=== PATIENT | male | born 1945 | race Caucasian/White ===

== ENCOUNTER 2018-03-27 20:22 | Emergency (ER) | payer MEDICARE, OTHER, SELFPAY ==
[2018-03-27 20:27] VITALS: BP 152/72; PULSE 88; RESP 16; TEMP 36.7; O2SAT 98; BMI 29.9
[2018-03-27] MEDS: Morphine 4 MG/ML Syringe IV (21:30)
[2018-03-27] MEDS: Ondansetron 4 MG/2 ML Vial IV (21:31)
--- NOTE | 2018-03-27 21:35 | RAD_ITS ---
STUDY: X-RAY - RIGHT WRIST REASON FOR EXAM: Male, 72 years old. Injury TECHNIQUE: 3 view(s) of the wrist were obtained. COMPARISON: None. FINDINGS: There is impacted fracture at the distal radius with posterior displacement and angulation. There is positive ulnar variance with ulna carpal abutment. No osseous destruction. RAD/Wrist min 3 Views IMPRESSION: Fracture of the distal radius with posterior displacement and angulation Electronically Signed: Shantanu Benitez MD at 21:52 EDT Tel , Service support ,
[2018-03-27 23:44] VITALS: BP 134/82; PULSE 93; RESP 14; O2SAT 99
[2018-03-27 23:46] VITALS: BP 129/82; BP 137/89; BP 138/71; PULSE 79; PULSE 82; PULSE 84; RESP 17; RESP 20; O2SAT 96; O2SAT 97; O2SAT 98
--- NOTE | 2018-03-27 23:50 | RAD_ITS ---
STUDY: X-RAY - RIGHT WRIST REASON FOR EXAM: Male, 72 years old. Post reduction. TECHNIQUE: 2 view(s) of the wrist were obtained. COMPARISON: 03/27/2018. FINDINGS: There is redemonstration of a comminuted fracture of the radial metaphysis there is persistent impaction. Previously demonstrated posterior displacement and angulation is improved. Normal visualized distal ulna. Normal radiocarpal articulation. Normal distal radioulnar articulation. Normal carpal bones. Normal carpal articulations. Normal carpometacarpal articulation of the thumb. Normal second through fifth carpometacarpal articulations. Normal visualized metacarpal bones. RAD/Wrist 2 Views IMPRESSION: Impacted fracture of the radial metaphysis with improved angulation and posterior displacement when compared with previous study. Electronically Signed: Christiano Rosenberg MD at 0:43 EDT , Service support ,
[2018-03-28] VITALS: BP 139/106; PULSE 90; RESP 15; O2SAT 97
--- NOTE | 2018-03-28 00:05 | RAD_ITS ---
STUDY: X-RAY - RIGHT WRIST REASON FOR EXAM: Male, 72 years old. Right wrist fracture TECHNIQUE: 2 view(s) of the wrist were obtained. COMPARISON: 03/28/2018 at 0000 hours FINDINGS: There has been interval closed reduction of a comminuted distal radial metaphyseal fracture with fracture fragments held in near-anatomic alignment. Overlying plaster cast obscures fine bone detail. Normal radiocarpal articulation. Positive ulnar variance is noted. Normal carpal bones. Normal carpal articulations. There is mild nonuniform joint space narrowing with spur formation of the first carpometacarpal and triscaphe the joints. Normal second through fifth carpometacarpal articulations. Normal visualized metacarpal bones. Soft tissue swelling surrounding the wrist RAD/Wrist 2 Views IMPRESSION: Status post closed reduction and casting of a comminuted distal radial metaphyseal fracture Electronically Signed: Nilo Hollis MD at 1:13 EDT Tel , Service support ,
[2018-03-28 00:08] VITALS: BP 141/76; PULSE 83; RESP 17; O2SAT 98
[2018-03-28] MEDS: Propofol 200 MG/20 ML Vial IV BOLUS (00:09)
[2018-03-28 00:13] VITALS: BP 128/75; PULSE 83; RESP 14; O2SAT 97
--- NOTE | 2018-03-28 00:18 | ED.DCSUM_ITS ---
- ER Visit Summary Date of Service: 03/28/18 Chief Complaint: Right wrist injury History of Present Illness: The patient is a 72 M presenting with right wrist injury. Patient states he tripped and fell landing on outstretched right upper extremity. He did not hit his head or lose consciousness. He complains of right wrist pain. Denies other injuries. He has a history of previous right wrist fracture. Physical Examination: Vitals are stable. Patient is afebrile. Alert no acute distress. HEENT exam is unremarkable. Neck is nontender Lungs are clear and equal bilaterally. Heart is regular rate and rhythm. Extremities right wrist deformity, normal pulses Skin is warm and dry. No focal neurologic deficit. Remainder of exam is unremarkable. Emergency Department Course and Treatment: Patient was given morphine, Zofran IV. X-ray right wrist shows distal radius fracture with posterior displacement and angulation. Discussed with Dr. Ford. He recommends attempt at reduction with splinting and follow-up in the office. Hematoma block was performed. He was consented for procedural sedation. He is given propofol. Closed reduction was attempted and AP splint was applied. Neurovascularly intact after splint placement. Post reduction xray shows impacted fracture of the radial metaphysis with improved angulation and posterior displacement when compared with previous study, status post closed reduction and casting of a comminuted distal radial metaphyseal fracture. Patient is given a prescription for short course of [place]. He is advised to follow-up with Dr. Ford. Advised to return to the ED for worsening complaints. Disposition: Discharge home Impression: Right distal radius fracture, closed reduction, procedural sedation This note was generated with [employer] dictation software. It may contain incorrect words, spelling, and punctuation that were not noted in review of the chart prior to signing ED Disposition - Plan for ED Patient: Chief Complaint: Upper Extremity Injury Instructions: ED Fx Colles Wrist Redu Requ Prescriptions: Hydrocodone Bitart/Apap 5-325 [[place] 5MG-325MG] 1 tablet PO Q6H PRN PRN 3 Days # 10 tablet PRN Reason: Pain Referrals: Donnie Ford MD [STAFF PHYSICIAN] - Alejandro Kinsey MD [Primary Care Provider] -
--- NOTE | 2018-03-28 00:18 | ED.DEP ---
ED Disposition - Plan for ED Patient: Chief Complaint: Upper Extremity Injury Instructions: ED Fx Colles Wrist Redu Requ Prescriptions: Hydrocodone Bitart/Apap 5-325 [[place] 5MG-325MG] 1 tablet PO Q6H PRN PRN 3 Days #10 tablet PRN Reason: Pain Referrals: Alejandro Kinsey MD [Primary Care Provider] - Donnie Ford MD [STAFF PHYSICIAN] -
--- NOTE | 2018-03-28 00:20 | DCINST.ED_ITS ---
ED Disposition - Plan for ED Patient: Chief Complaint: Upper Extremity Injury Instructions: ED Fx Colles Wrist Redu Requ Prescriptions: Hydrocodone Bitart/Apap 5-325 [[place] 5MG-325MG] 1 tablet PO Q6H PRN PRN 3 Days # 10 tablet PRN Reason: Pain Referrals: Alejandro Kinsey MD [Primary Care Provider] - Donnie Ford MD [STAFF PHYSICIAN] -
[2018-03-28 01:58] VITALS: BP 109/74; PULSE 78; RESP 16; O2SAT 98
== END 2018-03-28 01:58 | disposition home or self-care (01) ==
LOC: ED 21:33
PROVIDERS: Emergency Provider Emergency Medicine; Family Provider Internal Medicine; PCP Internal Medicine
DX: S52.501A Unspecified fracture of the lower end of right radius, initial encounter for closed fracture (principal); W01.0XXA Fall on same level from slipping, tripping and stumbling without subsequent striking against object, initial encounter; Y93.9 Activity, unspecified; Y92.9 Unspecified place or not applicable
CPT/HCPCS: 25605; 73100; 73110; 96374; 96375; 99152; 99285; J7040; A4216; J2405

== ENCOUNTER 2018-04-10 18:46 | Emergency (ER) | payer MEDICARE, OTHER, SELFPAY ==
[2018-04-10 18:46] VITALS: BP 169/78; PULSE 110; RESP 16; TEMP 36.6; O2SAT 98; BMI 28.5
[2018-04-10] MEDS: HYDROcodone Bitartrate/Apap 5/325 Tablet PO ×2 (20:39→23:44)
--- NOTE | 2018-04-10 23:41 | ED.DCSUM_ITS ---
- ER Visit Summary Date of Service: 04/10/18 Chief Complaint: post-op bleeding History of Present Illness: The patient is a 72 M who presents for postop bleeding of the right wrist after having an external fixation performed earlier today. Patient noted his bandages became saturated on the wrist area of his right forearm approximately 30 minutes prior to presentation. He called his surgeon and was instructed to come to the emergency department for evaluation. he had a nerve block performed which is still fully in effect, and thus patient states he cannot feel his right arm or move it. He denies any dizziness, lightheadedness, shortness of breath or other complaints other than the noted bleeding to the bandages of the surgical site. Patient is not currently on any blood thinners. He denies any other trauma postop to the arm. Physical Examination: Patient is awake and alert in no distress. Hemodynamically stable. Skin is warm and dry, no pallor. Examination of the right upper extremity shows bulky bandaging of the forearm just distal to the elbow and to the bases of the fingers. Bandaging from the fingers to the wrist is saturated with blood. Patient has brisk capillary refill in the fingers. No sensation or motor function. Test Results: [] Emergency Department Course and Treatment: Patient's bandaging dressing of the surgical site was taken down to expose the external fixation device with multiple pins penetrating the skin. The incisions were clean dry and intact, with sutures in place. There was no active hemorrhage once the bloodsoaked dressing was removed. The majority of the blood was at the distal pins, and hemorrhage appears to be controlled at this time. Patient was discussed with Dr. Timmons, who recommended cleaning the pins with Betadine to keep them sterile and then reapplying sterile dressings to the pin sites prior to re- splinting and wrapping the arm. The pins were all cleaned using sterile technique with Betadine. The Betadine was then removed from the skin using sterile gauze soaked in sterile saline. Non-adherent dressings were reapplied over the suture sites. The pins were wrapped with sterile dressing. A short volar splint was reapplied, as the original splint was bloodsoaked. The arm was dressed and bandaged using bulky gauze, Kerlix and finally Stevie wrap. Afterwards patient still had brisk capillary refills in the fingers. Nerve block was still intact and he had no motor or sensation. He did receive Vicodin scheduled as per his postop instructions. Patient was discharged home and will call his orthopedic doctor tomorrow to arrange for follow-up. Treatment Plan: [] Disposition: [] Impression: Postop hemorrhage after external fixation of the right distal forearm. This note was generated with [employer] dictation software. It may contain incorrect words, spelling, and punctuation that were not noted in review of the chart prior to signing ED Disposition - Plan for ED Patient: Disposition: Home or Assisted Living Chief Complaint: Wound Instructions: ED Wound Check Post Op Bleeding Referrals: Kelton Ceballos MD [NON-STAFF] - 1 Day for another exam Alejandro Kinsey MD [Primary Care Provider] - Additional Instructions: Please follow all postoperative instructions as you were given by Dr. Ceballos. If you have any further concerns for bleeding or any other complications, please return to the emergency department. If you have any worsening of your condition or any new concerning symptoms, please return immediately to the emergency department for another evaluation.
[2018-04-10 23:51] VITALS: RESP 16
== END 2018-04-10 23:52 | disposition home or self-care (01) ==
PROVIDERS: Emergency Provider Emergency Medicine; Family Provider Internal Medicine; PCP Internal Medicine
DX: M96.830 Postprocedural hemorrhage of a musculoskeletal structure following a musculoskeletal system procedure (principal)
CPT/HCPCS: 99285

== ENCOUNTER → 2019-07-30 13:13 | Outpatient (CLI) | payer MEDICARE, OTHER, SELFPAY ==
[2019-04-30 12:42] VITALS: BMI 28.8
[2019-07-30 15:45] LABS: AST(SGOT) 32 U/L (15-37); Alanine Aminotransfer ALT/SGPT 36 U/L (16-61); Albumin, Serum 4.1 g/dL (3.2-5.0); Alkaline Phosphatase 122 U/L (45-117); Bilirubin, Direct 0.12 mg/dL (0.00-0.30); Cholesterol 191 mg/dL (200); Globulin 3.6 g/dL (2.2-4.2); High Density Lipoprotein 49 mg/dL; Protein, Total 7.7 g/dL (6.4-8.2); Triglycerides 260 mg/dL; Very Low Density Lipoprotein 52 mg/dL (5-40)
== END ==
PROVIDERS: Family Provider Internal Medicine; PCP Internal Medicine; Referring Provider Internal Medicine Cardiovascular Disease; Visit Provider Internal Medicine Cardiovascular Disease
DX: I25.10 Atherosclerotic heart disease of native coronary artery without angina pectoris (principal)
CPT/HCPCS: 36415; 80061; 80076

== ENCOUNTER → 2020-05-11 12:49 | Outpatient (CLI) | payer MEDICARE, OTHER, SELFPAY ==
[2020-04-29 14:06] VITALS: BMI 28.6
[2020-05-11 13:54] LABS: AST(SGOT) 30 U/L (15-37); Alanine Aminotransfer ALT/SGPT 48 U/L (16-61); Albumin, Serum 3.9 g/dL (3.2-5.0); Alkaline Phosphatase 124 U/L (45-117); Bilirubin, Direct 0.16 mg/dL (0.00-0.30); Cholesterol 194 mg/dL (200); Globulin 3.6 g/dL (2.2-4.2); High Density Lipoprotein 43 mg/dL; Protein, Total 7.5 g/dL (6.4-8.2); Triglycerides 309 mg/dL; Very Low Density Lipoprotein 62 mg/dL (5-40)
== END ==
PROVIDERS: PCP Internal Medicine; Referring Provider Nurse Practitioner Family; Visit Provider Nurse Practitioner Family
DX: I25.10 Atherosclerotic heart disease of native coronary artery without angina pectoris (principal); I47.1 Supraventricular tachycardia; E78.5 Hyperlipidemia, unspecified; I10 Essential (primary) hypertension
CPT/HCPCS: 36415; 80061; 80076

== ENCOUNTER 2024-02-17 05:39 | Day surgery (SDC) | payer MEDICARE, OTHER, SELFPAY ==
[2024-02-17] VITALS (7 sets, daily range): BP systolic 68–112; BP diastolic 44–100; PULSE 90–136; RESP 12–18; TEMP 35.3–36.1; O2SAT 92–99; BMI 30.6
--- NOTE | 2024-02-17 05:47 | EKG12_ITS ---
Test Reason : CP Blood Pressure : / mmHG Vent. Rate : 083 BPM Atrial Rate : 087 BPM P-R Int : 146 ms QRS Dur : 156 ms QT Int : 408 ms P-R-T Axes : 056 074 -50 degrees QTc Int : 479 ms Sinus rhythm with Premature supraventricular complexes Right bundle branch block Septal infarct , age undetermined Anterior ST elevation-consider STEMI Abnormal ECG Confirmed by Deondre Rose ([id number]), editorial director LYDIA SHELTON ([id number]) on 02/18/2024 8:27:43 AM Referred By: MILTON Confirmed By:Deondre Rose
[2024-02-17] MEDS: Metoprolol Tartrate 5 MG/5 ML Vial IV (05:54)
--- NOTE | 2024-02-17 06:08 | EKG12_ITS ---
Test Reason : CP Blood Pressure : / mmHG Vent. Rate : 138 BPM Atrial Rate : 138 BPM P-R Int : 124 ms QRS Dur : 152 ms QT Int : 356 ms P-R-T Axes : 066 084 -04 degrees QTc Int : 539 ms Sinus tachycardia with Premature supraventricular complexes Right bundle branch block Septal infarct , age undetermined T wave abnormality, consider lateral ischemia Abnormal ECG Confirmed by Deondre Rose ([id number]), editorial director LYDIA SHELTON ([id number]) on 02/18/2024 8:28:04 AM Referred By: MILTON Confirmed By:Deondre Rose
[2024-02-17] MEDS: 0.9% Normal Saline (1000mL) 1,000 ML 999 ML IV (06:10)
--- NOTE | 2024-02-17 06:26 | CT_ITS ---
EXAM: CT ANGIOGRAPHY CHEST WITHOUT AND WITH INTRAVENOUS CONTRAST CLINICAL INDICATION: CHEST PAIN. TECHNIQUE: Helically acquired angiography images were obtained of the chest without and with intravenous contrast. This CT exam was performed using one or more of the following dose reduction techniques: automated exposure control, adjustment of the mA and/or kV according to patient size, and/or use of iterative reconstruction technique. MIP reconstructed images were created and reviewed. CONTRAST: IV 100mL Isovue-370 RADIATION DOSE: Total DLP: 459.33 mGy-cm. COMPARISON: No relevant prior studies available. FINDINGS: PULMONARY ARTERIES: There is symmetrically diminished enhancement of the lower lobe pulmonary arterial tree consistent with flow-related artifact, which limits evaluation of the subsegmental branches of both lower lobe pulmonary arteries. 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 No tubular filling defects are seen to indicate acute emboli. AORTA: The thoracic aorta is minimally calcific and is normal in caliber. There is no intimal calcification displacement. GREAT VESSELS OF AORTIC ARCH: Unremarkable. Normal in caliber. No evidence of dissection. LUNGS AND PLEURAL SPACES: Surgical suture material laterally within the right midlung in the region of the lateral right middle lobe. Bands of atelectasis within the lower lobes. Groundglass opacities also seen within the lower lobes, most likely due to additional atelectasis. No patchy airspace disease. Minimal bronchiectasis in the right upper lobe. Minimal parenchymal scarring within the upper lobes. No pneumothorax. No pleural effusion. HEART: The right atrium is dilated and there is extensive reflux of contrast into the IVC and hepatic veins due to the rapid bolus infusion of contrast and probable right heart dysfunction. Right ventricle does not appear dilated as compared to the left. Coronary artery calcification is present. No significant pericardial effusion. MEDIASTINUM: Unremarkable. No mediastinal or hilar adenopathy. Esophagus is unremarkable. No hiatal hernia. THYROID: Unremarkable. No thyroid lesions. BONES/JOINTS: Lower cervical degenerative disc disease. No acute osseous abnormality. INTRAPERITONEAL SPACE: Unremarkable as visualized. No focal abnormalities noted within the liver or spleen. No pneumoperitoneum is seen. CT/CTA Chest W/WO Contrast IMPRESSION: No acute pulmonary emboli identified but opacification of the subsegmental branches of both lower lobe pulmonary arteries is limited by flow related artifact, felt be secondary to right heart dysfunction. 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 Coronary artery calcification. Electronically Signed: Van Pearl MD at 7:43 EDT ,
[2024-02-17] MEDS: MethylPREDNISolone 125 MG/2 ML Vial IV (06:28)
[2024-02-17] MEDS: DiphenhydrAMINE 50 MG/ML Syringe 25 MG IV (06:28)
[2024-02-17 06:46] LABS: Absolute Lymphocyte Count 2.78 X10^3/uL (0.83-4.51); Absolute Neutrophil Count 4.9 X10^3/uL (2.0-7.7); Basophil# 0.06 X10^3/uL; Basophil% 0.7 % (0-1); Eosinophil# 0.11 X10^3/uL; Eosinophils% 1.3 % (0-5); Hematocrit 51.2 % (40-54); Hemoglobin 15.8 g/dL (13.0-16.5); Lymphocyte # 2.78 X10^3/ul (0.83-4.51); Lymphocyte % 33.4 % (19-41); Mean Corp Hgb Conc 30.9 g/dL (32-36); Mean Corpuscular Hgb 30.4 pg (27.0-32.0); Mean Corpuscular Volume 98.7 fL (80-94); Monocyte# 0.49 X10^3/uL; Monocyte% 5.9 % (0-10); NRBC Flagged by Analyzer 0 % (0-5); Neutrophil # 4.86 X10^3/uL (2.7-7.7); Neutrophil % 58.3 % (47-70); POSITIVE COUNT YES; RBC Distribution Width SD 46.7 fl (35.1-43.9); Red Blood Count 5.19 M/mm3 (4.6-6.2)
[2024-02-17 06:53] LABS: Differential Indicated SCAN CRITERIA MET
[2024-02-17 06:58] LABS: International Normalized Ratio 1.1; Prothrombin Time (Protime)PT. 14.6 SECONDS (11.7-14.9)
[2024-02-17 07:08] LABS: Differential Comment SCANNED; Platelet Estimate MOD DEC (ADEQ); Platelet Morphology CLUMPED; White Blood Count 8.3 K/mm3 (4.4-11.0)
--- NOTE | 2024-02-17 07:16 | EX.ED.DYSGE1 ---
HPI History of Present Illness Chief Complaint: Chest Pain Informant: patient and EMS Narrative Narrative: Patient is a 78-year-old male who states that he was sitting in his recliner this morning when he passed out. He states when this occurred he did not have any type of prodrome or aura denying chest pain prior to the syncopal event or palpitations. He states he awoke and realized that he soiled himself and therefore went to the bathroom and also noticed he was having midsternal chest discomfort so therefore called EMS to bring him in for evaluation [facility] Medical History History of blood transfusion Sarcoidosis Paroxysmal atrial tachycardia Nonobstructive atherosclerosis of coronary artery Essential (primary) hypertension HLD (hyperlipidemia) Home Medications ?Medication ?Instructions ?Recorded ?Last Taken ?Type aspirin 81 mg tablet,delayed 81 mg PO DAILY 05/13/18 Unknown History release (Adult Aspirin Regimen) multivitamin (Daily Multi-Vitamin 1 tab PO DAILY 05/13/18 Unknown History tablet) nitroglycerin 0.4 mg sublingual 0.4 mg sublingual Q5-15M PRN 05/13/18 Unknown History tablet ramipril 10 mg capsule 10 mg PO QDAY #90 caps 04/10/21 Unknown Rx atorvastatin 80 mg tablet See Rx Instructions .Route 07/17/21 Unknown Rx .COMPLEX #90 tabs ascorbic acid (vitamin C) 1,000 mg 1 g PO Q6H 04/25/22 Unknown History capsule cholecalciferol (vitamin D3) 50 50 mcg PO DAILY 04/25/22 Unknown History mcg (2,000 unit) capsule lutein 40 mg capsule 40 mg PO DAILY 04/25/22 Unknown History xioftidkuqdn-dknxreaw-skeqzc tablet 1 tab PO DAILY 04/25/22 Unknown History metoprolol succinate 50 mg 50 mg PO QDAY #30 tabs 06/25/22 Unknown Rx tablet,extended release 24 hr (Toprol XL) Allergy/AdvReac Type Severity Reaction Status Date / Time simvastatin (From Zocor) Allergy Severe Rash Verified 04/29/20 14:06 Iodinated Contrast Media Allergy Unknown Unknown Verified 04/29/20 14:06 (Iodinated Contrast- Oral and IV Dye) Family History Father CAD (coronary artery disease) Myocardial infarction Mother Abdominal aortic aneurysm (AAA) Surgical History History of left heart catheterization (09/26/03) History of cataract surgery History of tonsillectomy Hx of hernia repair Social History (Updated 04/29/20 @ 14:52 by Kelton Mason WIRELESS STORE MANAGER, WIRELESS STORE MANAGER-C) Smoking Status: Never smoker ROS ROS ED Constitutional Constitutional ED: Denies chills or fever(s) Eyes Eyes: Denies change in vision ENT ENT ED: Denies sore throat Cardiovascular Cardiovascular: Reports chest pain and other Details: Positive syncope ; Denies palpitations or racing heartbeat Respiratory/Chest Respiratory/Chest: Denies cough or dyspnea Gastrointestinal Gastrointestinal: Reports nausea; Denies abdominal pain, diarrhea or vomiting Genitourinary Genitourinary ED: Denies dysuria Musculoskeletal Musculoskeletal: Denies back pain or myalgias Integumentary Denies rash Neurologic Neurologic: Denies headache(s) Hematologic/Lymphatic Hematologic/Lymphatic: Denies easy bleeding or easy bruising EXAM Physical Exam Const Vital Signs: 02/17/24 05:40 02/17/24 05:46 02/17/24 06:39 Temperature 95.6 F L 95.8 F L Temperature Source Temporal Temporal Pulse Rate 136 H 90 103 H Respiratory Rate 16 17 18 Respiratory Effort Blood Pressure 112/100 H 68/44 L 92/60 Blood Pressure Mean 104 52 70 Pulse Ox 92 99 Oxygen Delivery Method Nasal Cannula Nasal Cannula Oxygen Flow Rate (L/min) 2 2 02/17/24 06:46 02/17/24 06:51 02/17/24 06:59 Temperature 95.8 F L Temperature Source Temporal Pulse Rate 91 106 H Respiratory Rate 13 12 Respiratory Effort Normal Blood Pressure 92/60 106/60 Blood Pressure Mean 70 75 Pulse Ox 99 99 Oxygen Delivery Method Nasal Cannula Nasal Cannula Oxygen Flow Rate (L/min) 2 02/17/24 07:00 Temperature Temperature Source Pulse Rate 108 H Respiratory Rate 15 Respiratory Effort Blood Pressure 105/65 Blood Pressure Mean 78 Pulse Ox 94 Oxygen Delivery Method Nasal Cannula Oxygen Flow Rate (L/min) 2 Positive well nourished and well developed General Appearance ED: well developed, cyanotic, diaphoretic and pallor HEENT Reports moist mucous membranes HEENT Narrative: Normocephalic atraumatic Eyes PERRL and EOMs intact bilaterally General Eye ED: Yes pale conjunctiva; Negative for scleral icterus Neck supple and no JVD Chest Wall palpation of chest normal Chest Narrative: No bony deformity or crepitance noted Resp normal respiratory effort and clear to auscultation bilaterally Resp Narrative: Breath sounds are diminished throughout but overall clear to auscultation without signs of respiratory distress Cardio regular rhythm Rate: tachycardic and other Other Details: Tachycardic rate with regular rhythm with frequent ectopy noted Radial and carotid pulses are equal and symmetric GI normal to inspection, nondistended, normoactive bowel sounds, non-tender, non-distended and no masses GI Narrative: No voluntary guarding or rigidity or pulsatile mass Auscultation: normoactive bowel sounds Palpation: soft Extremity normal to inspection Extremity Narrative: No asymmetric edema no pitting edema negative Homans' sign bilaterally Neuro oriented x3, CN's II-XII intact bilaterally and no sensory deficits noted Sensorium / Orientation: alert Psych Psych Narrative: Patient has a flat affect Skin Skin Narrative: Skin is pale and grayish in color with mild diaphoresis General Skin Exam: pallor MDM MDM MDM Narrative Medical decision making narrative: Patient arrived to the ER tachycardic but normotensive. He looked pale and diaphoretic and complained of midsternal chest discomfort. Based on his presentation and EKG a STEMI was activated. The EKG was reviewed by the director dermatology Dr. Dominique and upon review he felt that the heart rate and bundle branch block were more of the cause of the elevation and depression versus acute PA and recommended further evaluation with slowing the heart rate and tracking the patient's troponin. The patient was given 5 of Lopressor upon arrival which did slow his heart rate down into the 80s and repeat EKG at this time did show similar bundle branch block with mild depression and elevation. As the new EKG and a slower rate did not significantly change from the EMS EKG no STEMI was activated but the EKGs were sent to the orthopedic physical therapist. A CTA of the chest was obtained to rule out PE or potential dissection or lung pathology as a cause of his symptoms. This revealed no obvious findings. The patient's troponin came back elevated approximately 550. The patient's chest pain began to increase and now spread to bilateral arms and he looked more tenorio and ashen. Based on his worsening pain and physical appearance repeat EKG was obtained which showed similar bundle branch block with mild depression and elevation. This did resemble with the EMS EKG more closely as a apparent STEMI. Cardiology was contacted once again and they do agree at this time to take him to the [facility] for further intervention. He had already been given aspirin and nitro per EMS so a bolus of heparin was provided at this time. Medicine was contacted secondary to need for admission after the heart cath and they do agree except the patient to the ICU at this time History & Record Review Discussion w/independent historian: Patient Lab Data Attestation: I reviewed the patient's lab results. Labs: Laboratory Results - last 24 hr 02/17/24 06:32 WBC 8.3 RBC 5.19 Hgb 15.8 Hct 51.2 MCV 98.7 H MCH 30.4 MCHC 30.9 L RDW Std Deviation 46.7 H RDW Coeff of Carlos 13.0 Plt Count Not Reportable MPV 11.0 Immature Gran % (Auto) 0.400 Neut % (Auto) 58.3 Lymph % (Auto) 33.4 [place] % (Auto) 5.9 Eos % (Auto) 1.3 Baso % (Auto) 0.7 Absolute Neuts (auto) 4.9 Absolute Lymphs (auto) 2.78 Nucleated RBC % 0 Differential Comment SCANNED Platelet Estimate MOD DEC Plt Morphology Comment CLUMPED Management Discussion w/another healthcare provider: Hospitalist and Manager Business Planning Discharge Plan Triage Chief Complaint: Chest Pain ED Provider: Eric Huizar Dx/Rx/DC Orders Clinical Impression: Essential (primary) hypertension, HLD (hyperlipidemia), Acute non-ST elevation myocardial infarction (NSTEMI), CAD (coronary artery disease) Prescriptions: No Action aspirin [Adult Aspirin Regimen] 81 mg tablet,delayed release (DR/EC) 81 mg PO DAILY multivitamin [Daily Multi-Vitamin] tablet 1 tab PO DAILY nitroglycerin 0.4 mg tablet, sublingual 0.4 mg SUBLINGUAL Q5-15M PRN orquswbsssgq-gefondpg-giytfp Tablet 1 tab PO DAILY cholecalciferol (vitamin D3) 50 mcg (2,000 unit) capsule 50 mcg PO DAILY lutein 40 mg capsule 40 mg PO DAILY Rx Instructions: administer with meals ascorbic acid (vitamin C) 1,000 mg capsule 1 g PO Q6H ramipril 10 mg capsule 10 mg PO QDAY Qty: 90 3RF atorvastatin 80 mg tablet See Rx Instructions .ROUTE .COMPLEX Qty: 90 3RF Dose Instruction: take 1 tablet by mouth at bedtime Rx Instructions: take 1 tablet by mouth at bedtime metoprolol succinate [Toprol XL] 50 mg tablet extended release 24 hr 50 mg PO QDAY Qty: 30 1RF Primary Care Provider: Alejandro Kinsey Referrals: Alejandro Kinsey MD [Primary Care Provider] - Print Language: Gabonese Disposition Disposition: Acute Care Hospital [facility]
[2024-02-17 07:18] LABS: D-Dimer Quantitative (DVT/PE) 0.73 FEU/ug/m (0.27-0.49)
[2024-02-17 07:19] LABS: Anion Gap 14 (5-15); BUN 21 mg/dL (7-18); Calcium,Total 8.9 mg/dL (8.5-10.1); Chloride 108 mmol/L (98-107); EST Glomerular Filtration Rate 48 mL/min (>60); Est Glom Filt Rate - Afr Amer 58 mL/min (>60); Glucose 158 mg/dL (74-106); Magnesium 2.6 mg/dL (1.6-2.6); Potassium 4.1 mmol/L (3.5-5.1); Sodium Level 138 mmol/L (136-145); Troponin-I HS 547 pg/mL (3.0-78.0)
--- NOTE | 2024-02-17 07:24 | EKG12_ITS ---
Test Reason : ELEVATED TROP Blood Pressure : / mmHG Vent. Rate : 114 BPM Atrial Rate : 111 BPM P-R Int : 168 ms QRS Dur : 168 ms QT Int : 370 ms P-R-T Axes : 061 083 -63 degrees QTc Int : 509 ms Critical Test Result: Arrhythmia , STEMI Sinus tachycardia with PVC's Right bundle branch block Anteroseptal infarct , possibly acute T wave abnormality, consider inferior ischemia ACUTE [place] / STEMI Abnormal ECG Confirmed by Deondre Rose ([id number]), image editor LYDIA SHELTON ([id number]) on 02/18/2024 8:32:43 AM Referred By: Confirmed By:Deondre Rose
[2024-02-17] MEDS: Heparin Injection (Vial) 5,000 UNIT/ML VIAL 4000 UNIT IV (07:28)
--- NOTE | 2024-02-17 07:42 | PCM.CONS.C ---
Assessment & Plan Assessment/Plan (1) Acute non-ST elevation myocardial infarction (NSTEMI): PLAN: He does present with chest discomfort and is noted to have a non-ST elevation myocardial infarction. The plan of moment to be to take him directly to the cardiac catheterization lab and depending on the findings further recommendations will be made. Addendum: His cardiac catheterization done this morning demonstrates severe triple-vessel disease with an occluded proximal LAD, mildly diseased left circumflex artery, totally occluded right coronary artery and left to right collaterals. He will undergo attempted PCI of his LAD. (2) Essential (primary) hypertension: PLAN: His blood pressure appears to be under fair control I would not recommend that we make any major changes. He will have an echocardiogram to assess his ventricular function. (3) HLD (hyperlipidemia): QUALIFIERS: Hyperlipidemia type: unspecified Qualified Code(s): E78.5 - Hyperlipidemia, unspecified PLAN: He does have a history of hyperlipidemia and will be treated with high intensity statin. Thank you for allowing me to participate in the care of your patient. Please don't hesitate to call if any issues arise. HPI Consult Data Date of Consult: 02/17/24 HPI Narrative HPI Narrative: MORENITA PANDA, is a 78 M who presents to the emergency room with chest discomfort. After calling the squad. He is a patient with a history of paroxysmal atrial tachyarrhythmia nonobstructive coronary disease, essential hypertension who has not had a cardiac follow-up in over 3 years. He developed chest discomfort this morning presented to the emergency room was noted to have a right bundle branch block with some EKG changes initially a STEMI was called but then this was called off. He subsequently started developing more chest discomfort in the emergency room and cardiology was called for further evaluation and management. During his initial admission he had been administered intravenous beta-jefferson for sinus tachycardia with mild drop in his blood pressure. I went to see him in the emergency room he appeared to be fairly uncomfortable his heart rate was in the low 100s and blood pressure was 97/71 mmHg. EKG demonstrated sinus tachycardia with a right bundle branch block. Plans were made to take him immediately to the cardiac catheterization lab. [facility] Medical History History of blood transfusion Sarcoidosis Paroxysmal atrial tachycardia Nonobstructive atherosclerosis of coronary artery Essential (primary) hypertension HLD (hyperlipidemia) Home Medications ?Medication ?Instructions ?Recorded ?Last Taken ?Type aspirin 81 mg tablet,delayed 81 mg PO DAILY 05/13/18 Unknown History release (Adult Aspirin Regimen) multivitamin (Daily Multi-Vitamin 1 tab PO DAILY 05/13/18 Unknown History tablet) nitroglycerin 0.4 mg sublingual 0.4 mg sublingual Q5-15M PRN 05/13/18 Unknown History tablet ramipril 10 mg capsule 10 mg PO QDAY #90 caps 04/10/21 Unknown Rx atorvastatin 80 mg tablet See Rx Instructions .Route 07/17/21 Unknown Rx .COMPLEX #90 tabs ascorbic acid (vitamin C) 1,000 mg 1 g PO Q6H 04/25/22 Unknown History capsule cholecalciferol (vitamin D3) 50 50 mcg PO DAILY 04/25/22 Unknown History mcg (2,000 unit) capsule lutein 40 mg capsule 40 mg PO DAILY 04/25/22 Unknown History jlglngctxjng-[id number]-cgwhqh tablet 1 tab PO DAILY 04/25/22 Unknown History metoprolol succinate 50 mg 50 mg PO QDAY #30 tabs 06/25/22 Unknown Rx tablet,extended release 24 hr (Toprol XL) Allergy/AdvReac Type Severity Reaction Status Date / Time simvastatin (From Zocor) Allergy Severe Rash Verified 04/29/20 14:06 Iodinated Contrast Media Allergy Unknown Unknown Verified 04/29/20 14:06 (Iodinated Contrast- Oral and IV Dye) Family History Father CAD (coronary artery disease) Myocardial infarction Mother Abdominal aortic aneurysm (AAA) Surgical History History of left heart catheterization (09/26/03) History of cataract surgery History of tonsillectomy Hx of hernia repair Social History Smoking Status: Never smoker ROS Constitutional Constitutional: Denies fever(s) or weight loss Eyes Eyes: Reports systems reviewed and no addt'l complaints, except as documented ENT HEENT: Reports systems reviewed and no addt'l complaints, except as documented Cardiovascular Cardiovascular: Reports chest pain at rest and palpitations; Denies chest pain with activity, dyspnea at rest, dyspnea on exertion, edema or paroxysmal nocturnal dyspnea Respiratory/Chest Respiratory/Chest: Denies dyspnea on exertion, productive cough, shortness of breath at rest or shortness of breath with exertion Gastrointestinal Gastrointestinal: Denies change in bowel habits, nausea, vomiting or weight changes Genitourinary Genitourinary: Denies difficulty urinating Musculoskeletal Musculoskeletal: Denies joint stiffness or muscle weakness Integumentary Integumentary: Denies lesions Neurologic Neurologic: Denies dizziness or syncope Psychiatric Psychiatric: Denies anxiety Endocrine Endocrinology: Denies excessive sweating or fatigue Hematologic/Lymphatic Hematologic/Lymphatic: Denies anemia Allergic/Immunologic Allergic/Immunologic: Denies seasonal rhinorrhea Physical Exam Const alert, oriented x3 and no apparent distress General Appearance: cooperative HEENT hearing grossly normal bilaterally Head and Scalp: atraumatic Eyes EOMs intact bilaterally Neck General: normal visual inspection Chest inspection of chest normal and palpation of chest normal Resp normal respiratory effort Auscultation: clear to auscultation bilaterally Cardio regular rate, regular rhythm, S1 normal heart sound and S2 normal heart sound Jugular Venous Distention: JVD GI normal to inspection, nondistended, normoactive bowel sounds Extremity normal capillary refill and no pedal edema Peripheral Pulses: Yes pulses 2+ throughout and femoral pulses present Skin no rashes or lesions noted Neuro oriented x3 and CN's II-XII intact bilaterally Psych Appearance: grossly normal and appropriate Risk Stratification Risk Stratification Applicable: Yes Age >/= 65: Yes >/= 3 CAD Risk Factors (HTN, HLD, DM, family hx of CAD, or current smoker): No Aspirin Use in the Past 7 Days: Yes Severe Angina (>/= episodes in 24 hours): Yes EKG ST Changes >/= 0.5mm: No Positive Cardiac Marker: Yes ISSA Risk Stratification Score: 4 ISSA % Risk: 20% Risk Objective Data Vital Signs: Vital Signs Temp Pulse Resp BP Pulse Ox O2 Del Method O2 Flow Rate 95.8 F L 108 H 15 105/65 94 Nasal Cannula 2 02/17/24 06:46 02/17/24 07:00 02/17/24 07:00 02/17/24 07:00 02/17/24 07:00 02/17/24 07:00 02/17/24 07:00 Oxygen Flow Rate (L/min) 2 Oxygen Delivery Method Nasal Cannula Weight: 195 lb 5.273 oz Body Mass Index (BMI) 30.6 Intake & Output: Intake and Output for Last 24 Hours 02/15/24 02/16/24 02/17/24 23:59 23:59 23:59 Intake Total 0 / 0 Balance 0 / 0 Lab / Micro Data 02/17/24 06:32 02/17/24 06:32 Labs: Laboratory Results - last 24 hr 02/17/24 06:32: WBC 8.3, RBC 5.19, Hgb 15.8, Hct 51.2, MCV 98.7 H, MCH 30.4, MCHC 30.9 L, RDW Std Deviation 46.7 H, RDW Coeff of Carlos 13.0, Plt Count Not Reportable, MPV 11.0, Immature Gran % (Auto) 0.400, Neut % (Auto) 58.3, Lymph % (Auto) 33.4, [place] % (Auto) 5.9, Eos % (Auto) 1.3, Baso % (Auto) 0.7, Absolute Neuts (auto) 4.9, Absolute Lymphs (auto) 2.78, Nucleated RBC % 0, Differential Comment SCANNED, Platelet Estimate MOD DEC, Plt Morphology Comment CLUMPED, PT 14.6, INR 1.1, APTT 25.0, D-Dimer Quant (PE/DVT) 0.73 H*, Sodium 138, Potassium 4.1, Chloride 108 H, Carbon Dioxide 16.0 L, Anion Gap 14, BUN 21 H, Creatinine 1.50 H, Estim Creat Clear Calc 0.00, Est GFR (MDRD) Af Amer 58 L, Est GFR (MDRD) Non-Af 48 L, BUN/Creatinine Ratio 14.0, Glucose 158 H, Calcium 8.9, Magnesium 2.6, Troponin I High Sens 547 H* Cardiology Labs/Tests 02/17/24 06:32: WBC 8.3, RBC 5.19, Hgb 15.8, Hct 51.2, MCV 98.7 H, MCH 30.4, MCHC 30.9 L, Plt Count Not Reportable, MPV 11.0, Immature Gran % (Auto) 0.400, Neut % (Auto) 58.3, Lymph % (Auto) 33.4, [place] % (Auto) 5.9, Eos % (Auto) 1.3, Baso % (Auto) 0.7, Absolute Neuts (auto) 4.9, Nucleated RBC % 0, PT 14.6, INR 1.1, APTT 25.0, D-Dimer Quant (PE/DVT) 0.73 H*, Sodium 138, Potassium 4.1, Chloride 108 H, Carbon Dioxide 16.0 L, Anion Gap 14, BUN 21 H, Creatinine 1.50 H, Est GFR (MDRD) Af Amer 58 L, Est GFR (MDRD) Non-Af 48 L, BUN/Creatinine Ratio 14.0, Glucose 158 H, Calcium 8.9, Magnesium 2.6 Rhythm: EKG: ECHO: Stress Test: Cardiac Cath: PCI: CT Surgery: Holter monitor: EPS: PPM: CXR: Chest CT Scan:
--- NOTE | 2024-02-17 08:43 | CL.D_ITS ---
Patient Name: MORENITA PANDA Study Date: 02/17/2024 Performing: Kelton Hoang MD Ht: 67 inches 170.18 cm : 1945 Wt: 195.6 lbs 88.6 kg Age: 78 Gender: male BSA: 2 PROCEDURE(S) PERFORMED DC02-(92690)LHC/COR IC12-(93848/C9600)ROBERT W/WO PTCA, SINGLE CORONARY ARTERY [id number] CLINICAL PROFILE AND INDICATIONS Indications: ACS <= 24 hrs Heart Failure: None Stress/Imaging Stress/Image Study Performed: No CAD Presentations: Non-STEMI. Symptom onset Date/Time: 02/17/24 Time Not Available CONCLUSIONS Severe triple-vessel disease with an occluded proximal left anterior descending artery and occluded right coronary artery with [id number] collaterals and severe left ventricular systolic dysfunction. RECOMMENDATIONS Referred for immediate PCI DESCRIPTION OF PROCEDURE The patient arrived to the procedure lab. The risks and benefits of the procedure as well as a full description of our services here and current unavailability of surgical backup were fully explained to the patient and/or their significant other prior to the catheterization. The Timeout was completed, verifying the correct patient and procedure. The patient's procedural site was prepped and draped in the usual fashion. Local anesthetic was given subcutaneously to right radial region with Lidocaine 2%. Using a modified Seldinger technique, arterial access was obtained via the right radial artery, a 6Fr sheath was inserted., arterial access was obtained via the right femoral artery, a 6Fr sheath was inserted. Left Coronary Artery selective angiography was performed in multiple views using a 5 Fr. 4.0 [place] catheter. Right Coronary Artery selective angiography was then performed in multiple views using a 5 Fr. 4.0 [place] catheter. CORONARY ANGIOGRAPHY DOMINANCE: Right Dominant LEFT HEART ASSESSMENT Left Ventricular Ejection Fraction: by Echo 25 % LEFT MAIN: No significant disease noted LEFT ANTERIOR DESCENDING ARTERY: OSTIAL LAD: is occluded CIRCUMFLEX ARTERY: Mild luminal irregularities less than 30% RIGHT CORONARY ARTERY: PROX RCA: is occluded COLLATERAL FLOW: Collateral flow from Left to Right COMPLICATIONS No Complications PROCEDURE MEDICATIONS Oxygen: 4 L/min via nasal cannula Oxygen: 2 L/min via nasal cannula Heparin given IA 02/17/2024 08:20:59 SUMMARY OF HEMODYNAMIC DATA Time AIR REST ECG 08:07:42 AO 94/63 (74) SA 08:24:20 AO 89/72 (80) 08:28:29 AO 57/44 (49) 08:44:10 AO 78/67 (72) 09:00:36 AO 40/33 (36) 09:22:46 AO 0/0 (-25) 09:44:10 AIR REST 09:58:21 Signed By Kelton Hoang MD On 02/18/2024 09:01:30 Signed By Kelton Hoang MD On 02/17/2024 08:43:06 Kelton Hoang MD
--- NOTE | 2024-02-17 09:07 | CPS ---
Patient intubated per Dr. Hoang with no complications. EZ cap end tidal used and showed good color change along with condensation in ET tube.
--- NOTE | 2024-02-17 09:12 | CPS ---
2 ambu bags used due to full of vomit and blood.
--- NOTE | 2024-02-17 10:05 | CL.I_ITS ---
Patient Name: MORENITA PANDA Study Date: 02/17/2024 Performing: Flavio Durand MD Ht: 67 inches 170.18 cm : 1945 Wt: 195.6 lbs 88.6 kg Age: 78 Gender: male BSA: 2 PROCEDURE(S) PERFORMED IC12-([id number]/C9600)ROBERT W/WO PTCA, SINGLE CORONARY ARTERY [id number] CLINICAL PROFILE AND CO-MORBIDITIES Indications: ACS <= 24 hrs Heart Failure: None Stress/Imaging Stress/Image Study Performed: No CAD Presentations: Non-STEMI. Symptom onset Date/Time: 02/17/24 Time Not Available CONCLUSIONS Successful drug-eluting stent placement to the LAD. Patient went into cardiac arrest and could not be resuscitated. RECOMMENDATIONS DESCRIPTION OF PROCEDURE The patient arrived to the procedure lab. The risks and benefits of the procedure as well as a full description of our services here and current unavailability of surgical backup were fully explained to the patient and/or their significant other prior to the catheterization. The Timeout was completed, verifying the correct patient and procedure. The patient's procedural site was prepped and draped in the usual fashion. Local anesthetic was given subcutaneously to right radial region with Lidocaine 2% Using a modified Seldinger technique,arterial access was obtained via the right radial artery, a 6Fr sheath was inserted., arterial access was obtained via the right femoral artery, a 6Fr sheath was inserted. Left Coronary Artery selective angiography was performed in multiple views using a 5 Fr. 4.0 [place] catheter. Right Coronary Artery selective angiography was then performed in multiple views using a 5 Fr. 4.0 [place] catheter.The images were reviewed and options discussed. A decision was then made to proceed with an Intervention, IVUS or other adjunct procedure. BMW 0.014 X 190 Guide wire was advanced to the Left main. XB 3 Guide catheter was inserted and engaged into the LCA. Priority One inserted Pass # 1 Priority One Removed EUPHORA 2.5 X 12 Balloon catheter was inserted. Balloon catheter was advanced across lesion in the LAD, proximal. PTCA balloon inflated at 8 atms for 12 secs. LETY FRONTIER 3.0 X18 Drug Eluting stent was inserted. Drug Eluting stent was advanced across the lesion in the LAD, proximal. Angiogram performed post stent deployment. INTERVENTION INFORMATION LESION SITE: LAD (Proximal) Pre Stenosis: 100 % Pre intervention ISSA flow: 0 PROCEDURE: Thrombectomy, Drug Eluting Stent with pre dilatation. Flow was restored in the LAD after thrombectomyPTCA was performed with a 2.5 mm balloon which further improved the flow in the LAD. Following this we deployed a 3.0 x 18 mm drug-eluting stent. Immediately after stent deployment patient went into ventricular fibrillation. He was initially resuscitated. He had ISSA-3 flow in the LAD. However he went into ventricular fibrillation again followed by PEA. Resuscitation was continued for little over 30 minutes. Patient continued to remain in pulseless electrical activity. Since the patient was not coming out of PEA despite maximal resuscitative efforts, further resuscitative efforts were terminated. Patient at 9:43 AM on 02/17/2024. Post Stenosis: 0 % Post intervention ISSA flow: 3 Lesion Devices: Kathleen .014 190cm BMW [place] Straight Cordis 6 Fr XB3.0 100cm Guide Catheter Medtronic 3.0 x 18 LETY FRONTIER ROBERT Medtronic SC EUPHORA RX 2.5x12 BALLOON COMPLICATIONS No Complications PROCEDURE MEDICATIONS Oxygen: 4 L/min via nasal cannula Oxygen: 2 L/min via nasal cannula Heparin given IA 02/17/2024 08:20:59 SUMMARY OF HEMODYNAMIC DATA Time AIR REST ECG 08:07:42 AO 94/63 (74) SA 08:24:20 AO 89/72 (80) 08:28:29 AO 57/44 (49) 08:44:10 AO 78/67 (72) 09:00:36 AO 40/33 (36) 09:22:46 AO 0/0 (-25) 09:44:10 AIR REST 09:58:21 Signed By Flavio Durand MD On 02/18/2024 09:02:43 Signed By Flavio Durand MD On 02/17/2024 10:05:11 AM Flavio Durand MD
== END 2024-02-17 07:39 | disposition home or self-care (01) ==
LOC: ED 06:34 → CLSP 07:40 → CLINP 07:43
PROVIDERS: Emergency Provider Emergency Medicine; PCP Internal Medicine; Visit Provider Specialist
DX: I21.4 Non-ST elevation (NSTEMI) myocardial infarction (principal); E78.5 Hyperlipidemia, unspecified; I45.10 Unspecified right bundle-branch block; I10 Essential (primary) hypertension; I25.10 Atherosclerotic heart disease of native coronary artery without angina pectoris; Z95.5 Presence of coronary angioplasty implant and graft
CPT/HCPCS: 31500; 36415; 71275; 80048; 83735; 84484; 85025; 85379; 85610; 85730; 92928; 92950; 93005; 93454; 99285; C1757; J7030; J7050; Q9967; A4216; C1725; C1769; C1874; C1887; C1894; C9600; J1327